=== PATIENT | male | born 1965 | race Caucasian/White ===

== ENCOUNTER 2021-06-27 09:41 | Inpatient (IN) ==
[2021-06-27 10:15] LABS: Basophils # (auto) 0.04 K/uL (0-0.2); Basophils % (auto) 0.5 %; Eosinophils # (auto) 0.28 K/uL (0-0.5); Eosinophils % (auto) 3.3 %; Hematocrit (blood only) 47.7 % (42-52); Hemoglobin 15.6 g/dL (14.0-18.0); Immature Granulocytes # (auto) 0.05 K/uL (0.00-0.02); Immature Granulocytes % (auto) 0.6 %; Lymphocytes # (auto) 2.77 K/uL (1.2-3.4); Lymphocytes % (auto) 32.3 %; Mean Corpuscular Hemoglobin 32.2 pg (25-34); Mean Corpuscular Hgb Conc 32.7 g/dL (32-36); Mean Corpuscular Volume 98.6 fL (80-100); Mean Platelet Volume 10.4 fL (7.4-10.4); Monocytes # (auto) 1.04 K/uL (0.11-0.59); Monocytes % (auto) 12.1 %; Neutrophils % (auto) 51.2 %; Platelet Count 193 K/uL (130-400); RDW Coefficient of Variation 13.7 % (11.5-14.5); RDW Standard Deviation 49.3 fL (36.4-46.3); Red Blood Count 4.84 M/uL (4.7-6.1); White Blood Count 8.58 K/uL (4.8-10.8)
--- NOTE | 2021-06-27 10:18 | Emergency Department Note ---
Impression & Plan Exertional angina, New onset a-fib, History of hypertension ED Provider Note NAME: CHAYITO ABRAMS AGE: 55 SEX: M ARRIVES VIA: Walk-In INFORMANT: Patient ED PROVIDER(S): Reuben Patel MD CHIEF COMPLAINT: New onset afib, exertional CP. PLAN: Disposition: Admit MEDICAL DECISION MAKING: The patient is a pleasant 55-year-old gentleman with a past medical history of portal vein thrombosis, hypertension who presents emergency department for evaluation and admission for exertional chest pain that has been ongoing since April seen by cardiology today for follow-up of a negative stress test found to be in new A. fib. The patient did arrive to his appointment today with chest pain with exertion and so there was concern for anginal pattern to his symptoms. They had recommended transport by ambulance however the patient deferred. He had been given aspirin and nitroglycerin with resolution of his pain. His EKG demonstrated A. fib without overt acute ischemia. Appreciate phone discussion with [facility] cardiology Dr. Pittman who saw the patient in the office and plan will be for admission with heparinization for A. fib and planned heart catheterization tomorrow. Patient denies any pain at this time. He denies any return of pain when walking from his vehicle. He has a has an extensive family history of early heart disease with family members in their 40s-50s. Patient denies any recent fevers, chills, cough, congestion, GI or symptoms. He denies any known COVID-19 exposures. He is not vaccinated for COVID-19. On arrival the patient is no distress, afebrile stable vital signs. EKG demonstrates atrial fibrillation without overt acute ischemia. Chest x-ray with interstitial prominence without focal infiltrates. WBC, H/H and platelets within normal limits. Chemistry without metabolic acidosis. Electrolytes LFTs without significant abnormality. Troponin negative/undetectable. COVID-19 RNA, ASHLEY test was negative. Patient denies any history of GI bleeding or bleeding otherwise. We agreed to proceed with shaji tment with heparin at this time. He agrees with plan for admission. Case was discussed with Sherri Keen [facility] PAC, with Dr. Rico [facility] hospitalist who will evaluate the patient for admission. Triage Nursing notes reviewed and agree them. Prior medical records reviewed Vital Signs: reviewed and remarkable for no significant abnormalities Differential diagnosis: Cardiac ischemia, aortic dissection, pulmonary embolism, pneumothorax, pneumonia, pericarditis, myocarditis, esophageal rupture, GERD, cholecystitis, pancreatitis, musculoskeletal, as well as other pathologies. ER treatment provided: See below. Diagnostics interpreted by me: ECG: Atrial fibrillation, 87 bpm, no ectopy, no overt ST elevation or depression, QTC 401, QRS 90 Cardiac Monitoring: An order for continuous cardiac monitoring was placed and demonstrated Atrial fibrillation, 87 bpm, no ectopy. Laboratory studies: See below Imaging studies: See below Consultation(s): Sherri Keen, [facility] PAC, with Dr. Rico, [facility] hospitalist who will evaluate the patient for admission. HPI: The patient is a pleasant 55-year-old gentleman with a past medical history of portal vein thrombosis, hypertension who presents emergency department for evaluation and admission for exertional chest pain that has been ongoing since April seen by cardiology today for follow-up of a negative stress test found to be in new A. fib. The patient did arrive to his appointment today with chest pain with exertion and so there was concern for anginal pattern to his symptoms. They had recommended transport by ambulance however the patient deferred. He had been given aspirin and nitroglycerin with resolution of his pain. His EKG demonstrated A. fib without overt acute ischemia. Appreciate phone discussion with [facility] cardiology Dr. Pittman who saw the patient in the office and plan will be for admission with heparinization for A. fib and planned heart catheterization tomorrow. Patient denies any pain at this time. He denies any return of pain when walking from his vehicle. He has a has an extensive family history of early heart disease with family members in their 40s-50s. Patient denies any recent fevers, chills, cough, congestion, GI or symptoms. He denies any known COVID-19 exposures. He is not vaccinated for COVID-19 ROS: See above HPI for pertinent positives & negatives. A total of 10 systems reviewed and were otherwise negative. PAST MEDICAL HISTORY:See Below PAST SURGICAL HISTORY:See Below FAMILY HISTORY:See Below SOCIAL HISTORY:See Below HOME MEDICATIONS:See Below ALLERGIES:See Below VITALS:See Below PHYSICAL EXAMINATION: GENERAL: Awake, alert, well-appearing, in no distress, BMI 40.6 HENT: Normocephalic, atraumatic. Oropharynx unremarkable. EYES: Normal conjunctiva. Sclera non-icteric. NECK: Supple. No nuchal rigidity. FROM. No JVD. RESPIRATORY: Clear to auscultation. CARDIAC: Regular rate, irregular rhythm. Extremities warm and well perfused. Pu lses equal. ABDOMEN: Soft, non-distended. No tenderness to palpation. No rebound or guarding. No masses. RECTAL: Deferred. MUSCULOSKELETAL: Chest examination reveals no tenderness. The back is symmetr ical on inspection without obvious abnormality. There is no CVA tenderness to palpation. No joint edema. LOWER EXTREMITIES: Calves are equal size bilaterally and non-tender. No edema. No discoloration. NEURO: Normal sensorium. No sensory or motor deficits noted. SKIN: No rash or jaundice noted. ED COURSE: Critical Care: I have personally spent greater than 35 minutes of critical care time in the direct management of this patient. This includes bedside care, interpretation of diagnostic studies, and testing, discussion with consultants, patient, and family members, and other required patient management activities. This 35 minutes is in excess of all separately billable procedures. Reuben Patel MD Past Med/Surg History Medical History HTN (hypertension) Portal vein thrombosis Family History Other Heart disease Social History Smoking Status: Current some day smoker Tobacco Type: Cigarettes Preferred Language: Lao Feels Safe at Home: Yes Allergies Allergies Allergy/AdvReac Type Severity Reaction Status Date / Time garlic Allergy Unknown UNKNOWN Unverified 06/27/21 11:45 latex Allergy Unknown rash Verified 06/27/21 11:45 Home Meds Home Medications Medication Instructions Recorded Confirmed aspirin 81 mg tablet,delayed 81 mg PO DAILY 06/27/21 06/27/21 release (Aspirin Low Dose) atenolol 50 mg tablet 50 mg PO DAILY 06/27/21 06/27/21 ergocalciferol (vitamin D2) 1,000 1,000 unit PO DAILY 06/27/21 06/27/21 unit capsule hydrochlorothiazide 25 mg tablet 25 mg PO DAILY 06/27/21 06/27/21 Results & Data (ED) Vital Signs Vital Signs - 24 hr 06/27/21:49 06/27/21 10:06 Temperature 36.4 C L Temperature Source Temporal Artery Scan Pulse Rate 94 H Pulse Rate [Apical] 64 Respiratory Rate 18 18 Respiratory Effort / Characteristics Non-Labored Respiratory Depth Normal Respiratory Pattern Regular Blood Pressure 126/92 Blood Pressure [Left Arm] 137/88 Blood Pressure Mean 103 Blood Pressure Mean [Left Arm] 104 Pulse Oximetry 96 98 Oxygen Delivery Method Room Air Room Air Sepsis Recent Fever Within 48 Hours No Sepsis New/Unexplained Change in Mental Status No Sepsis Action Taken by Nursing No Action Required Laboratory Data Attestation: I reviewed the patient's lab results. Result diagrams: 06/27/21 10:05 06/27/21 10:05 Lab Results 06/27/21 06/27/21 06/27/21 Range/Units 10:05 10:05 10:05 WBC 8.58 (4.8-10.8) K/uL RBC 4.84 (4.7-6.1) M/uL Hgb 15.6 (14.0-18.0) g/dL Hct 47.7 (42-52) % MCV 98.6 (80-100) fL MCH 32.2 (25-34) pg MCHC 32.7 (32-36) g/dL RDW Std Deviation 49.3 H (36.4-46.3) fL RDW Coeff of Connor 13.7 (11.5-14.5) % Plt Count 193 (130-400) K/uL MPV 10.4 (7.4-10.4) fL Immature Gran % (Auto) 0.6 % Neut % (Auto) 51.2 % Lymph % (Auto) 32.3 % [place] % (Auto) 12.1 % Eos % (Auto) 3.3 % Baso % (Auto) 0.5 % Neut # (Auto) 4.40 (1.4-6.5) K/uL Lymph # (Auto) 2.77 (1.2-3.4) K/uL [place] # (Auto) 1.04 H (0.11-0.59) K/uL Eos # (Auto) 0.28 (0-0.5) K/uL Baso # (Auto) 0.04 (0-0.2) K/uL Immature Gran # (Auto) 0.05 H (0.00-0.02) K/uL PT 11.2 (9.0-12.0) Seconds INR 1.1 (0.9-1.1) APTT 23.6 (21.0-31.0) Seconds PTT Ratio 0.9 Sodium 141 (136-145) mmol/L Potassium 4.5 (3.5-5.1) mmol/L Chloride 111 H (98-107) mmol/L Carbon Dioxide 26 (21-32) mmol/L Anion Gap 4 (3-11) BUN 17 (6-23) mg/dl Creatinine 0.92 (0.6-1.4) mg/dl Est Cr Clr Drug Dosing 127.2 ml/min Est GFR ( Amer) 108.9 ml/min Est GFR (Non-Af Amer) 94.0 ml/min BUN/Creatinine Ratio 18.5 (10-20) Glucose 116 H (70-99(Fasting)) mg/dl Calcium 9.6 (8.5-10.1) mg/dl Phosphorus 3.8 (2.5-4.9) mg/dl Magnesium 2.1 (1.7-2.4) mg/dl Total Bilirubin 0.4 (0.2-1.0) mg/dl AST 34 (13-39) U/L ALT 51 (7-52) U/L Alkaline Phosphatase 54 (34-104) U/L Troponin I < 0.03 (0-0.04) ng/ml Total Protein 6.9 (6.0-8.3) gm/dl Albumin 4.0 (3.4-5.0) gm/dl Globulin 2.9 (2.5-4.0) gm/dl Albumin/Globulin Ratio 1.4 (0.9-2) Lipase 59 (11-82) U/L SARS-CoV-2, RNA, NAAT (NEGATIVE) 06/27/21 Range/Units 10:38 WBC (4.8-10.8) K/uL RBC (4.7-6.1) M/uL Hgb (14.0-18.0) g/dL Hct (42-52) % MCV (80-100) fL MCH (25-34) pg MCHC (32-36) g/dL RDW Std Deviation (36.4-46.3) fL RDW Coeff of Connor (11.5-14.5) % Plt Count (130-400) K/uL MPV (7.4-10.4) fL Immature Gran % (Auto) % Neut % (Auto) % Lymph % (Auto) % [place] % (Auto) % Eos % (Auto) % Baso % (Auto) % Neut # (Auto) (1.4-6.5) K/uL Lymph # (Auto) (1.2-3.4) K/uL [place] # (Auto) (0.11-0.59) K/uL Eos # (Auto) (0-0.5) K/uL Baso # (Auto) (0-0.2) K/uL Immature Gran # (Auto) (0.00-0.02) K/uL PT (9.0-12.0) Seconds INR (0.9-1.1) APTT (21.0-31.0) Seconds PTT Ratio Sodium (136-145) mmol/L Potassium (3.5-5.1) mmol/L Chloride (98-107) mmol/L Carbon Dioxide (21-32) mmol/L Anion Gap (3-11) BUN (6-23) mg/dl Creatinine (0.6-1.4) mg/dl Est Cr Clr Drug Dosing ml/min Est GFR ( Amer) ml/min Est GFR (Non-Af Amer) ml/min BUN/Creatinine Ratio (10-20) Glucose (70-99(Fasting)) mg/dl Calcium (8.5-10.1) mg/dl Phosphorus (2.5-4.9) mg/dl Magnesium (1.7-2.4) mg/dl Total Bilirubin (0.2-1.0) mg/dl AST (13-39) U/L ALT (7-52) U/L Alkaline Phosphatase (34-104) U/L Troponin I (0-0.04) ng/ml Total Protein (6.0-8.3) gm/dl Albumin (3.4-5.0) gm/dl Globulin (2.5-4.0) gm/dl Albumin/Globulin Ratio (0.9-2) Lipase (11-82) U/L SARS-CoV-2, RNA, NAAT NEGATIVE (NEGATIVE) Administered Medications Atorvastatin Calcium (Atorvastatin 40 Mg Tab) 80 mg PO QAM [facility] Stop: 07/27/21 12:44 Last Admin: 06/27/21 14:24 Dose: 80 mg Documented by: [id number] Heparin Sodium/Dextrose (Heparin Sodium/Dextrose) 25,000 units in 500 mls @ 20 mls/hr IV .Q24H SHARON; Protocol Stop: 07/27/21 11:14 Last Admin: 06/27/21 11:25 Dose: 1,000 units/hr, 20 mls/hr Documented by: [id number] Cosigned by: [id number] Discontinued Medications Aspirin (Aspirin Chew 324 Mg) 324 mg PO NOW STA Stop: 06/27/21 12:40 Last Admin: 06/27/21 14:24 Dose: 324 mg Documented by: [id number] Heparin Sodium (Porcine) (Heparin Sod (Porcine) 1000 Unit/Ml) 1 units IV NOW ONE Stop: 06/27/21 11:04 Last Admin: 06/27/21 11:25 Dose: 4,000 units Documented by: [id number] Cosigned by: [id number] Heparin Sodium/Dextrose (Heparin Iv Adult Wt-Based Low-Dose With Bolus Protocol) 1 ea N/A NOW STA; Protocol Stop: 06/27/21 10:47 Last Admin: 06/27/21 11:25 Dose: Not Given Documented by: [id number] Imaging Data Radiologist's Impression: Venous Doppler Study 06/27/21 00:00 BILATERAL LOWER EXTREMITY VENOUS DOPPLER CLINICAL HISTORY: r/o DVT, left medial upper thigh pain COMPARISON STUDY: No previous studies for comparison. TECHNIQUE: Sonography of the deep venous system of the bilateral lower extremities was performed. Compression and augmentation were evaluated. FINDINGS: The bilateral common femoral, superficial femoral and popliteal veins were compressible. Augmentation was normal. Flow was shown within the deep calf vessels. IMPRESSION: No evidence of deep venous thrombus within the bilateral lower extremities. ACT 112: Negative or not required by law. Electronically signed by: Ishmael Hoyt M.D. 06/27/2021 2:26 PM Chest X-Ray 06/27/21 09:49 XR chest 1V portable CLINICAL HISTORY: Atypical chest pain. COMPARISON STUDY: No previous studies for comparison. FINDINGS: Lung volumes are normal. There is no pneumothorax or pleural effusion. Mild enlargement of the cardiac silhouette is noted. There is interstitial prominence. No consolidation is identified. IMPRESSION: Mild cardiomegaly. Pulmonary vascular congestion with possible mild pulmonary edema. ACT 112: Negative or not required by law. Electronically signed by: Ishmael Hoyt M.D. 06/27/2021 10:28 AM Discharge Plan Visit Data Chief Complaint: Abnormal Labs/Diagnostic Testing Stated Complaint: ABNORMAL EKG, CHEST PAIN ED Provider: Reuben Patel Discharge Problem: Exertional angina, New onset a-fib, History of hypertension Discharge Instructions Interventions: ED Discharge Assessment Last Done: 06/27/21 11:45
[2021-06-27 10:25] LABS: INR 1.1 (0.9-1.1); Partial Thromboplastin Ratio 0.9; Partial Thromboplastin Time 23.6 Seconds (21.0-31.0); Prothrombin Time 11.2 Seconds (9.0-12.0)
--- NOTE | 2021-06-27 10:30 | XRay Report ---
XR chest 1V portable CLINICAL HISTORY: Atypical chest pain. COMPARISON STUDY: No previous studies for comparison. FINDINGS: Lung volumes are normal. There is no pneumothorax or pleural effusion. Mild enlargement of the cardiac silhouette is noted. There is interstitial prominence. No consolidation is identified. IMPRESSION: Mild cardiomegaly. Pulmonary vascular congestion with possible mild pulmonary edema. ACT 112: Negative or not required by law. Electronically signed by: Ishmael Hoyt M.D. 06/27/2021 10:28 AM
[2021-06-27 10:39] LABS: Alanine Aminotransferase 51 U/L (7-52); Albumin Globulin Ratio 1.4 (0.9-2); Alkaline Phosphatase 54 U/L (34-104); Anion Gap 4 (3-11); Aspartate Aminotransferase 34 U/L (13-39); BUN Creatinine Ratio 18.5 (10-20); Bilirubin,Total 0.4 mg/dl (0.2-1.0); Blood Urea Nitrogen 17 mg/dl (6-23); Calcium 9.6 mg/dl (8.5-10.1); Carbon Dioxide 26 mmol/L (21-32); Chloride 111 mmol/L (98-107); Creatinine Clr Calc Pharmacy 127.2 ml/min; Est GFR (African American) 108.9 ml/min; Globulin 2.9 gm/dl (2.5-4.0); Glucose 116 mg/dl (70-99(Fasting)); Lipase 59 U/L (11-82); Magnesium 2.1 mg/dl (1.7-2.4); Phosphorus 3.8 mg/dl (2.5-4.9); Potassium 4.5 mmol/L (3.5-5.1); Sodium 141 mmol/L (136-145); Total Protein 6.9 gm/dl (6.0-8.3); Troponin I < 0.03 ng/ml (0-0.04)
[2021-06-27] MEDS ORDERED: Heparin IV Adult Wt-Based Low-Dose WITH Bolus Protocol STA (10:46)
--- NOTE | 2021-06-27 10:53 | History & Physical Report ---
Date of Service June 27, 2021 Assessment & Plan (1) Exertional angina: (2) New onset a-fib: (3) HTN (hypertension): Plan: - Admit to tele - New onset afib is rate controlled, will start on heparin gtt with low dose bolus - Cardiology consulted - saw Dr. Romero in the office earlier today - prior to that does not appear he has seen a provider within the [facility] since July 2019. - will discuss with card re make NPO at midnight for possible cardiac cath - EKG reviewed as above and from outpt today - no ischemia, no ST wave changes, afib, Hr in the 90s - Check 2 D echo - last was done November 2020 which showed LVEF of 55%, 4 chamber cardiac dilation, left ventricular hypertrophy with assymtetic septal thickening, slerotic changes involving both the aortic and mitral valve leaflets, trace mitral, aortic and tricuspid vavular insufficiency, dilation of the ascending aorta measured at 4.1 cm. - Initial troponin is negative - Pt reports completed a stress test Apr 2021 and that he passed - no further documentation available regarding this - Check TSH and free T4, last one was normal in November 2020 - Will check A1C and lipids with am labs - Noted fatty liver on previous labs that were brought from home. - Diet and exercise will need to be discussed throughout the visit, as well as smoking cessation (4) Tobacco use: Plan: - Smoking cessation, smokes 2-3 cig daily on and off for 6-8 months at a time. Pt reports being able to quit without nicotine replacement. Agreeable to cessation. (5) Left leg pain: Plan: - Will check doppler of legs bilaterally to rule out blood clot - pt describes pain 3-4 times since January going from the groin down the leg - Hx of portal vein thrombosis in 2016, reviewed in Epic outpt notes, will check liver US (6) Morbid obesity: Plan: - BMI of 40.6, diet and exercise encouraged. DVT ppx: - teds, scds, hepain gtt CODE: Full code Dispo: From home, likely to remain in the hospital x 1-2 days. History of Present Illness Chief Complaint: Exertional angina Primary Care Provider: Gabe Padilla This is a 55-year-old male with PMHx of HTN, ascending aortic enlargement who presented to the cardiology office this morning to see Dr. Kay for routine follow-up. Upon arriving there he did have chest pain, diaphoresis and some shortness of breath. His symptoms have been present since around , intermittently appearing, as often as daily. It occurs whenever he wakes up, while he is lying in bed, as well as when he is up doing physical activity. Pt describes a dull left sided chest pain which does not radiate, at it's worst is 4/10, and currently a 1/10 while at bedside. He also describes it as a "dripping from his heart". He denies syncope and near syncope. Admits to intermittent orthopnea without weight gain or noticeable edema. Pt notes he previously had a cyst in his chest cavity which was causing a similar pain, 20- 30 years ago, which he has had repeat imaging for and no other further needs for intervention. In the office he described a 2/10 chest discomfort and was treated with sublingual nitro 1 tablet, and given a full dose aspirin. He was referred to the ER however he denied EMS transfer so came per private vehicle. His EKG was found to be in A. fib with a rate of 99 bpm in the office. This appears to be new onset. Has previously followed with his PCP, Jayjay Tong in the outpatient setting. He did have an echocardiogram in November 2020 with normal results. He was referred this past April after a PCP visit to cardiology, and just got in to see the office earlier today for routine visit. Of note he mentions a left leg pain starting medially near the groin and goes down in the foot. Has occurred 3-4 times since January. He mentions a previous hernia (inguinal per records) which he saw a surgeon for 20 years ago, but did not undergo any intervention. Pt is worried about having a blood clot after discussion about afib and being started on heparin. In the ER the patient was started on heparin drip, and cardiology will be consulted for further assistance with work-up. 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 Surg Hx: Hx of colonoscopy with polyp removal, required laparoscopic partial bowel resection due to complication Allergies Allergy/AdvReac Type Severity Reaction Status Date / Time garlic Allergy Unknown UNKNOWN Unverified 06/27/21 11:45 latex Allergy Unknown rash Verified 06/27/21 11:45 Home Medications Medication Instructions Recorded Confirmed Type aspirin 81 mg tablet,delayed 81 mg PO DAILY 06/27/21 06/27/21 History release (Aspirin Low Dose) atenolol 50 mg tablet 50 mg PO DAILY 06/27/21 06/27/21 History ergocalciferol (vitamin D2) 1,000 1,000 unit PO DAILY 06/27/21 06/27/21 History unit capsule hydrochlorothiazide 25 mg tablet 25 mg PO DAILY 06/27/21 06/27/21 History Past Med/Surg History Medical History HTN (hypertension) Portal vein thrombosis Family History Other Heart disease Social History Smoking Status: Current some day smoker Tobacco Type: Cigarettes Preferred Language: Lebanese Feels Safe at Home: Yes Review of Systems Review of Systems: Constitutional: No fever, sweats or chills Eyes: No diplopia, no worsening or blurred vision ENT: normal hearing, no trouble swallowing Respiratory: No cough, sputum, dyspnea at rest or on exertion Cardiovascular: As per HPI. +chest pain, no tightness or palpitations Abdomen: No pain, nausea, vomiting, diarrhea or constipation Musculoskeletal: no joint pain, calf pain, swelling Neurologic: No weakness, numbness/tingling, or balance problems Psychiatric: No anxiety or depression Skin: No rash or itch Physical Exam Physical Exam: General: awake, alert, no apparent distress, + morbidly obese with BMI of 40.6 Head: Normocephalic, atraumatic ENT: PERRL, EOMI, no pharyngeal exudate, mucous membranes moist Chest: Clear to auscultation, on room air, no adventitious breath sounds Cardiac: + irregularly irregular, HR in mid to low 90s. No murmur, no JVD, normal peripheral pulses, good capillary refill, no chest pain with palpation. Abdominal: NABS x 4 quadrants, soft, nondistended, nontender to palpation, no rebound or guarding Extremities: Normal inspection, no peripheral edema or erythema, calfs nontender to palpation Psych: Normal mood and affect Neuro: AAO x 3, strength intact bilaterally and rated 5/5, no motor deficits, speech is clear, no peripheral sensory deficits Results & Data Results & Data ([facility]) Vital Signs (Past 12 Hours) Vital Signs Temp Pulse Pulse Resp BP BP Pulse Ox 06/27/21 10:06 64 18 137/88 98 06/27/21 09:49 36.4 C L 94 H 18 126/92 96 Laboratory Results 06/27/21 06/27/21 06/27/21 10:38 10:05 10:05 WBC RBC Hgb Hct MCV MCH MCHC RDW Std Deviation RDW Coeff of Connor Plt Count MPV Immature Gran % (Auto) Neut % (Auto) Lymph % (Auto) [place] % (Auto) Eos % (Auto) Baso % (Auto) Neut # (Auto) Lymph # (Auto) [place] # (Auto) Eos # (Auto) Baso # (Auto) Immature Gran # (Auto) PT 11.2 INR 1.1 APTT 23.6 PTT Ratio 0.9 Sodium 141 Potassium 4.5 Chloride 111 H Carbon Dioxide 26 Anion Gap 4 BUN 17 Creatinine 0.92 Est Cr Clr Drug Dosing 127.2 Est GFR ( Amer) 108.9 Est GFR (Non-Af Amer) 94.0 BUN/Creatinine Ratio 18.5 Glucose 116 H Calcium 9.6 Phosphorus 3.8 Magnesium 2.1 Total Bilirubin 0.4 AST 34 ALT 51 Alkaline Phosphatase 54 Troponin I < 0.03 Total Protein 6.9 Albumin 4.0 Globulin 2.9 Albumin/Globulin Ratio 1.4 Lipase 59 SARS-CoV-2, RNA, NAAT NEGATIVE 06/27/21 10:05 WBC 8.58 RBC 4.84 Hgb 15.6 Hct 47.7 MCV 98.6 MCH 32.2 MCHC 32.7 RDW Std Deviation 49.3 H RDW Coeff of Connor 13.7 Plt Count 193 MPV 10.4 Immature Gran % (Auto) 0.6 Neut % (Auto) 51.2 Lymph % (Auto) 32.3 [place] % (Auto) 12.1 Eos % (Auto) 3.3 Baso % (Auto) 0.5 Neut # (Auto) 4.40 Lymph # (Auto) 2.77 [place] # (Auto) 1.04 H Eos # (Auto) 0.28 Baso # (Auto) 0.04 Immature Gran # (Auto) 0.05 H PT INR APTT PTT Ratio Sodium Potassium Chloride Carbon Dioxide Anion Gap BUN Creatinine Est Cr Clr Drug Dosing Est GFR ( Amer) Est GFR (Non-Af Amer) BUN/Creatinine Ratio Glucose Calcium Phosphorus Magnesium Total Bilirubin AST ALT Alkaline Phosphatase Troponin I Total Protein Albumin Globulin Albumin/Globulin Ratio Lipase SARS-CoV-2, RNA, NAAT Diagnostic Findings Chest X-Ray 06/27/21 09:49 XR chest 1V portable CLINICAL HISTORY: Atypical chest pain. COMPARISON STUDY: No previous studies for comparison. FINDINGS: Lung volumes are normal. There is no pneumothorax or pleural effusion. Mild enlargement of the cardiac silhouette is noted. There is interstitial prominence. No consolidation is identified. IMPRESSION: Mild cardiomegaly. Pulmonary vascular congestion with possible mild pulmonary edema. ACT 112: Negative or not required by law. Electronically signed by: Ishmael Hoyt M.D. 06/27/2021 10:28 AM ECG Additional Comments: 27-JUN-2021 09:59:47 [facility]-EDSTAT ROUTINE RETRIEVAL Atrial fibrillation Abnormal ECG When compared with ECG of 08-DEC-2013 13:31, Atrial fibrillation has replaced Sinus rhythm Vent. rate has increased BY 29 BPM Nonspecific T wave abnormality no longer evident in Inferior leads Nonspecific T wave abnormality, worse in Lateral leads 25mm/s 10mm/mV 150Hz 9.0.9 12SL 241 BEAU: 16 Referred by: Jesus Kay Unconfirmed Vent. rate 87 BPM TX interval * ms QRS duration 90 ms QT/QTc 334/401 ms Code Status & VTE Plan Code Status Full code - discussed with the pt at bedside with his Supervising Physician Co-Signing Physician Notes I have seen and examined the patient and have discussed the case with the provider above. I agree with the assessment and plan as stated with exceptions as noted in supplemental communication note. DO Jacky
[2021-06-27] MEDS ORDERED: HEPARIN SOD (PORCINE) 1000 UNIT/ML IV ONE ×2 (11:03→20:05)
[2021-06-27] MEDS: HEPARIN SODIUM/DEXTROSE 25,000 UNITS/500 ML BAG IV SCH (11:25)
[2021-06-27] MEDS ORDERED: ACETAMINOPHEN 325 MG TAB PO PRN (11:45)
[2021-06-27] MEDS ORDERED: ONDANSETRON INJ 2 MG/ML 2 ML VIAL IV PRN (11:45)
--- NOTE | 2021-06-27 12:17 | Communication Note ---
Date of Service: June 27, 2021 55 yo M presented to the ER via POV as a referral from [facility] Cardiology office for chest pain and new onset atrial fibrillation with atrial fibrillat ion. He reports having intermittent chest pain that is increasing in frequency associated with decreased exercise tolerance when doing his job which has not previously been an issue for him. He had 2/10 chest pain in the office and received sublingual nitroglycerin with resolution of symptoms. He is currently pain-free and denies any heart palpitations or lightheadedness. Risk factors for CAD include obesity, active smoking, and a family history of early CAD (brother with MS at 46 yo). An echo from November 2020 reveals normal LV wall motion with an EF 55% with LVH and asymmetric septal thickening. There were sclerotic changes of the aortic and mitral valve leaflets with trace valvular insufficiency. Dilation of the ascending aorta was also present measuring 4.1cm. EKG tracing reveals atrial fibrillation and his heart rate is consistently less than 100. He denies any issues with bruising or bleeding recently, including no blood per rectum and no hematuria. Physical exam reveals an obese man in no acute distress. Mentating clearly with speech and memory intact, CN 2-12 grossly intact and no gross focal deficits. Cardiac exam reveals irregularly irregular rhythm with no murmurs, gallops or rubs. JVP is not elevated and there is no JVD or peripheral edema. Radial pulses are 2+ bilaterally and irregular. Extremities are warm and well perfused. Abdomen is protuberant, sof t, nondistended and nontender. Well-healed laparoscopic sites are present. He moves all extremities equally. Gait was not assessed. Lab work revealed negative troponin, normal CBC, BMP and PT/INR. EKG as above with no evidence of acute ischemia. Agree with adding TSH (normal TFTs in November 2020). He took ASA 81mg at home this morning, but did not take any further aspirin. With recent chest pain and risk factors for ACS will give additional 324mg chew now. Will also add lipitor 80mg in case of plaque rupture. Cont with ternormin, ASA 81mg daily, and HCTZ per home regimen. Cardiology consulted with plans to perform cardiac catheterization in am. Notably ROS also revealed right medial thigh pain which he reported has been going on for about 6 months, and is his "main concern." This pain is sharp, waking him up at night and lasts 15-20 minutes with spontaneous resolution. No precipitating or alleviating factors. Patient denies any recent risk factors for blood clot but reports a history of provoked post operative DVT (records review reveals evidence of PVT in 2016). Patient also has a h/o unknown hernia for which he was supposed to have surgery on previously which was deferred. Will start with US lower extremities and liver doppler to r/o DVT. If no DVT found, there is low risk for PE. Cathy Rico DO [facility]
[2021-06-27] MEDS ORDERED: ASPIRIN CHEW 324 MG PO STA (12:39)
[2021-06-27] MEDS: ATORVASTATIN 40 MG TAB PO SCH (14:24)
--- NOTE | 2021-06-27 14:27 | Ultrasound Report ---
BILATERAL LOWER EXTREMITY VENOUS DOPPLER CLINICAL HISTORY: r/o DVT, left medial upper thigh pain COMPARISON STUDY: No previous studies for comparison. TECHNIQUE: Sonography of the deep venous system of the bilateral lower extremities was performed. Co mpression and augmentation were evaluated. FINDINGS: The bilateral common femoral, superficial femoral and popliteal veins were compressible. A ugmentation was normal. Flow was shown within the deep calf vessels. IMPRESSION: No evidence of deep venous thrombus within the bilateral lower extremities. ACT 112: Negative or not required by law. Electronically signed by: Ishmael Hoyt M.D. 06/27/2021 2:26 PM
--- NOTE | 2021-06-27 14:30 | Ultrasound Report ---
US duplex portal hepatic veins CLINICAL HISTORY: Assess for portal vein thrombosis. COMPARISON STUDY: Abdomen and pelvis CT 03/14/2015. FINDINGS: The hepatic and portal veins are patent and demonstrate normal direction of flow. A 1.9 cm hypoechoic focus within the liver which may represent an area of focal fatty sparing. IMPRESSION: No evidence for portal vein thrombosis. ACT 112: Negative or not required by law. Electronically signed by: Antony Cadena M.D. 06/27/2021 2:29 PM
--- NOTE | 2021-06-27 14:50 | Cardiology Consultation ---
Date of Consultation June 27, 2021 Assessment & Plan (1) New onset a-fib: (2) HTN (hypertension): (3) Thoracic aneurysm without mention of rupture: The patient's heart rate is currently controlled and he is hemodynamically stable. He does not examine like he has heart failure, so I would not actively diurese him. He is anticoagulated with heparin. I will check his echocardiogram and make further recommendations. History of Present Illness Attending Physician: Cathy Rico, History of Present Illness This is a 55-year-old male patient who was followed by Dr. France until his recent halfway. He has an aneurysmal segment of his ascending aorta last measured at 4.6 cm. No prior history of coronary artery disease or heart failure. He is treated for mild hypertension and has a history of portal vein thrombosis. He does smoke but not on a daily basis. Since he is not felt well. He has had fatigue and tiredness and occasional what he describes as sharp chest pain. He came to the office today and was seen by Dr. Romero. Upon arrival there he was short of breath and having some chest discomfort. He was noted to be in newly diagnosed atrial fibrillation with RVR. He was referred to the emergency department where he has been admitted. Allergies Allergy/AdvReac Type Severity Reaction Status Date / Time garlic Allergy Unknown UNKNOWN Unverified 06/27/21 11:45 latex Allergy Unknown rash Verified 06/27/21 11:45 Home Medications Medication Instructions Recorded Confirmed Type aspirin 81 mg tablet,delayed 81 mg PO DAILY 06/27/21 06/27/21 History release (Aspirin Low Dose) atenolol 50 mg tablet 50 mg PO DAILY 06/27/21 06/27/21 History ergocalciferol (vitamin D2) 1,000 1,000 unit PO DAILY 06/27/21 06/27/21 History unit capsule hydrochlorothiazide 25 mg tablet 25 mg PO DAILY 06/27/21 06/27/21 History Patient History Medical History HTN (hypertension) Portal vein thrombosis Family History Other Heart disease Social History Smoking Status: Current some day smoker Tobacco Type: Cigarettes Hx Alcohol Use: Yes Alcohol type: beer and hard liquor Hx Substance Use: No Preferred Language: [place] Communication Ability: Effective Wardrobe Manager Required: No Beliefs That Will Affect Care: Judaism Judaism Beliefs: Restoration Current Living Situation: Spouse Other Information That Helps Us Care for You: No Feels Safe at Home: Yes Safety Concerns: Feels Safe At This Time Assistive Devices: None Review of Systems Review of Systems: Review of Systems: See HPI for pertinent positives. All other 10 point review of systems are negative. Physical Exam Physical Exam: General: no acute distress and stated age Head: normocephalic, no masses, lesions, tenderness or abnormalities Eyes: conjunctiva are pink and non-injected, sclera clear Neck: supple, no adenopathy, no bruits, normal jugular venous pulse, no hepatojugular reflux Chest: normal shape and normal respiratory effort Lungs: clear to auscultation and percussion Cardiac Exam: - regular rate & rhythm, no murmurs gallops or rubs - normal S1, normal S2 Pulses: 2(+) throughout Abdomen: abdomen soft, non-tender, no abnormal masses and no hepatosplenomegaly Musculoskeletal: no gait disturbance, no joint inflammation, no deforming arthritis Extremities: no edema and no cyanosis Neuro: grossly normal exam Results & Data ([facility]) Vital Signs (Past 12 Hours) Vital Signs Temp Pulse Pulse Resp BP BP Pulse Ox 06/27/21 13:34 90 18 138/93 95 06/27/21 10:06 64 18 137/88 98 06/27/21 09:49 36.4 C L 94 H 18 126/92 96 Laboratory Results General: no acute distress and stated age Head: normocephalic, no masses, lesions, tenderness or abnormalities Eyes: conjunctiva are pink and non-injected, sclera clear Neck: supple, no adenopathy, no bruits, normal jugular venous pulse, no hepatojugular reflux Chest: normal shape and normal respiratory effort Lungs: clear to auscultation and percussion Cardiac Exam: - regular rate & rhythm, no murmurs gallops or rubs - normal S1, normal S2 Pulses: 2(+) throughout Abdomen: abdomen soft, non-tender, no abnormal masses and no hepatosplenomegaly Musculoskeletal: no gait disturbance, no joint inflammation, no deforming arthritis Extremities: no edema and no cyanosis Neuro: grossly normal exam Medications Administered Current Inpatient Medications Acetaminophen (Acetaminophen 325 Mg Tab) 650 mg PO Q4H PRN PRN Reason: Moderate Pain Stop: 07/27/21 11:44 Aspirin (Aspirin 81 Mg Ectab) 81 mg PO DAILY [facility] Stop: 07/28/21 08:59 Atenolol (Atenolol 50 Mg Tablet) 50 mg PO DAILY [facility] Stop: 07/28/21 08:59 Atorvastatin Calcium (Atorvastatin 40 Mg Tab) 80 mg PO QAM [facility] Stop: 07/27/21 12:44 Last Admin: 06/27/21 14:24 Dose: 80 mg Documented by: Hydrochlorothiazide (Hydrochlorothiazide 25 Mg Tab) 25 mg PO DAILY [facility] Stop: 07/28/21 08:59 Heparin Sodium/Dextrose (Heparin Sodium/Dextrose) 25,000 units in 500 mls @ 20 mls/hr IV .Q24H [facility]; Protocol Stop: 07/27/21 11:14 Last Admin: 06/27/21 11:25 Dose: 1,000 units/hr, 20 mls/hr Documented by: Ondansetron HCl (Ondansetron Inj 2 Mg/Ml 2 Ml Vial) 4 mg IV Q4H PRN PRN Reason: Nausea And Vomiting Stop: 07/27/21 11:44 Vitamin D (Cholecalciferol 1,000 Units 25 Mcg Tab) 1,000 units PO DAILY [facility] Stop: 07/28/21 08:59
[2021-06-27 19:36] LABS: Partial Thromboplastin Time 25.6 Seconds (21.0-31.0)
[2021-06-28 03:02] LABS: Partial Thromboplastin Ratio 1.2; Partial Thromboplastin Time 32.7 Seconds (21.0-31.0)
[2021-06-28] MEDS ORDERED: HEPARIN SOD (PORCINE) 1000 UNIT/ML ONE (03:26)
[2021-06-28] MEDS: HEPARIN SOD (PORCINE) 1000 UNIT/ML IV ONE ×2 (03:29→04:44)
[2021-06-28 04:40] LABS: Hematocrit (blood only) 44.6 % (42-52); Hemoglobin 14.6 g/dL (14.0-18.0); Mean Corpuscular Hemoglobin 32.6 pg (25-34); Mean Corpuscular Hgb Conc 32.7 g/dL (32-36); Mean Corpuscular Volume 99.6 fL (80-100); Mean Platelet Volume 10.6 fL (7.4-10.4); Platelet Count 162 K/uL (130-400); RDW Coefficient of Variation 13.9 % (11.5-14.5); RDW Standard Deviation 50.7 fL (36.4-46.3); Red Blood Count 4.48 M/uL (4.7-6.1); White Blood Count 7.43 K/uL (4.8-10.8)
[2021-06-28 04:58] LABS: Alanine Aminotransferase 45 U/L (7-52); Albumin Globulin Ratio 1.3 (0.9-2); Albumin Level 3.5 gm/dl (3.4-5.0); Alkaline Phosphatase 44 U/L (34-104); Anion Gap 6 (3-11); Aspartate Aminotransferase 26 U/L (13-39); BUN Creatinine Ratio 22.6 (10-20); Bilirubin,Total 0.8 mg/dl (0.2-1.0); Blood Urea Nitrogen 19 mg/dl (6-23); Calcium 8.7 mg/dl (8.5-10.1); Carbon Dioxide 25 mmol/L (21-32); Chloride 109 mmol/L (98-107); Chol HDL Ratio 4.3 (0-5); Cholesterol 179 mg/dl (0-200); Creatinine Clr Calc Pharmacy 139.3 ml/min; Est GFR (Non-African American) 99.3 ml/min; Globulin 2.6 gm/dl (2.5-4.0); Glucose 90 mg/dl (70-99(Fasting)); HDL Cholesterol 42 mg/dl; LDL Cholesterol Calculated 110 mg/dl; Potassium 3.7 mmol/L (3.5-5.1); Sodium 140 mmol/L (136-145); Total Protein 6.1 gm/dl (6.0-8.3); Triglycerides 136 mg/dl (0-150); VLDL Cholesterol 27 mg/dl (0-30)
[2021-06-28 05:16] LABS: Troponin I < 0.03 ng/ml (0-0.04)
--- NOTE | 2021-06-28 06:27 | Electrocardiogram Report ---
Test Reason : Blood Pressure : / mmHG Vent. Rate : 087 BPM Atrial Rate : 277 BPM P-R Int : 000 ms QRS Dur : 090 ms QT Int : 334 ms P-R-T Axes : 000 -24 084 degrees QTc Int : 401 ms Atrial fibrillation Nonspecific T wave abnormality Abnormal ECG When compared with ECG of 08-DEC-2013 13:31, Atrial fibrillation has replaced Sinus rhythm Vent. rate has increased BY 29 BPM Nonspecific T wave abnormality no longer evident in Inferior leads Nonspecific T wave abnormality, worse in Lateral leads Confirmed by Lai Foster ([id number]) on 06/28/2021 6:27:48 AM Referred By: Jesus Kay Confirmed By:Lai Foster
[2021-06-28] MEDS: ASPIRIN 81 MG ECTAB PO SCH (08:14)
[2021-06-28] MEDS: HEPARIN SODIUM/DEXTROSE 25,000 UNITS/500 ML BAG IV SCH ×3 (08:14→22:02)
[2021-06-28] MEDS: ATENOLOL 50 MG TABLET PO SCH (08:15)
[2021-06-28] MEDS: hydroCHLOROthiazide 25 MG TAB PO SCH (08:15)
[2021-06-28] MEDS: ATORVASTATIN 40 MG TAB PO SCH (08:16)
[2021-06-28] MEDS: CHOLECALCIFEROL 1,000 UNITS 25 MCG TAB PO SCH (08:16)
[2021-06-28 09:48] LABS: Partial Thromboplastin Ratio 1.5; Partial Thromboplastin Time 40.3 Seconds (21.0-31.0)
[2021-06-28 13:15] LABS: Estimated Average Glucose 128 mg/dl; Hemoglobin A1C 6.1 % (4.5-5.6)
--- NOTE | 2021-06-28 14:49 | Cardiology Progress Note ---
Date of Service June 28, 2021 Assessment & Plan (1) New onset a-fib: (2) HTN (hypertension): (3) Thoracic aneurysm without mention of rupture: Plan: Had a long discussion with the patient and his 's presence. His echocardiogram shows well-preserved LV function and no wall motion abnormalities that would suggest underlying ischemic heart disease. Cardiac troponins are negative. BNP is low. Believe the patient's symptoms are due to new onset atrial fibrillation. His heart rates are controlled due to the atenolol and I believe that is why he has been able to tolerate the atrial fibrillation most likely since . He is currently anticoagulated with heparin. I presented the option of early cardioversion with transesophageal echocardiogram versus returning home on anticoagulation for several weeks then having an elective cardioversion. He would like to proceed with the PILY guided cardioversion and we will plan on doing this procedure tomorrow. I have explained the risk, benefit and intent of the procedure, both the PILY and cardi oversion. Placed him on Eliquis and continue the atenolol then follow him as an outpatient. If unsuccessful then we may have to consider antiarrhythmic medication. Admission and Anticipated Discharge Date Admission Date: June 27, 2021 Subjective The patient has no new complaints today. No chest pain. No shortness of breath. He remains in a persistent atrial fibrillation with a controlled heart rate. Review of Systems Review of Systems: Review of Systems: See HPI for pertinent positives. All other 10 point review of systems are negative. Physical Exam Physical Exam: General: no acute distress and stated age Head: normocephalic, no masses, lesions, tenderness or abnormalities Eyes: conjunctiva are pink and non-injected, sclera clear Neck: supple, no adenopathy, no bruits, normal jugular venous pulse, no hepatojugular reflux Chest: normal shape and normal respiratory effort Lungs: clear to auscultation and percussion Cardiac Exam: - irregular rate & rhythm, no murmurs gallops or rubs - normal S1, normal S2 Pulses: 2(+) throughout Abdomen: abdomen soft, non-tender, no abnormal masses and no hepatosplenomegaly Musculoskeletal: no gait disturbance, no joint inflammation, no deforming arthritis Extremities: no edema and no cyanosis Neuro: grossly normal exam Results & Data ([facility]) Vital Signs (Past 12 Hours) Vital Signs Temp Pulse Resp BP Pulse Ox 06/28/21 14:04 36.7 C 66 20 132/93 95 06/28/21 12:55 36.5 C 83 22 133/100 93 06/28/21 07:58 36.8 C 88 15 146/110 H 95 06/28/21 03:17 75 16 173/103 H 96 Laboratory Results Laboratory Results - last 24 hr 06/27/21 06/27/21 06/28/21 19:18 23:27 02:25 WBC RBC Hgb Hct MCV MCH MCHC RDW Std Deviation RDW Coeff of Connor Plt Count MPV APTT 25.6 32.7 H PTT Ratio 1.0 1.2 Sodium Potassium Chloride Carbon Dioxide Anion Gap BUN Creatinine Est Cr Clr Drug Dosing Est GFR ( Amer) Est GFR (Non-Af Amer) BUN/Creatinine Ratio Glucose Estimat Average Glucose Hemoglobin A1c Calcium Magnesium Total Bilirubin AST ALT Alkaline Phosphatase Troponin I < 0.03 Total Protein Albumin Globulin Albumin/Globulin Ratio Triglycerides Cholesterol LDL Cholesterol, Calc VLDL Cholesterol, Calc HDL Cholesterol Cholesterol/HDL Ratio 06/28/21 06/28/21 06/28/21 04:09 04:09 04:09 WBC 7.43 RBC 4.48 L Hgb 14.6 Hct 44.6 MCV 99.6 MCH 32.6 MCHC 32.7 RDW Std Deviation 50.7 H RDW Coeff of Connor 13.9 Plt Count 162 MPV 10.6 H APTT PTT Ratio Sodium 140 Potassium 3.7 Chloride 109 H Carbon Dioxide 25 Anion Gap 6 BUN 19 Creatinine 0.84 Est Cr Clr Drug Dosing 139.3 Est GFR ( Amer) 115.0 Est GFR (Non-Af Amer) 99.3 BUN/Creatinine Ratio 22.6 H Glucose 90 Estimat Average Glucose 128 Hemoglobin A1c 6.1 H Calcium 8.7 Magnesium 2.0 Total Bilirubin 0.8 AST 26 ALT 45 Alkaline Phosphatase 44 Troponin I < 0.03 Total Protein 6.1 Albumin 3.5 Globulin 2.6 Albumin/Globulin Ratio 1.3 Triglycerides 136 Cholesterol 179 LDL Cholesterol, Calc 110 VLDL Cholesterol, Calc 27 HDL Cholesterol 42 Cholesterol/HDL Ratio 4.3 06/28/21 09:20 WBC RBC Hgb Hct MCV MCH MCHC RDW Std Deviation RDW Coeff of Connor Plt Count MPV APTT 40.3 H PTT Ratio 1.5 Sodium Potassium Chloride Carbon Dioxide Anion Gap BUN Creatinine Est Cr Clr Drug Dosing Est GFR ( Amer) Est GFR (Non-Af Amer) BUN/Creatinine Ratio Glucose Estimat Average Glucose Hemoglobin A1c Calcium Magnesium Total Bilirubin AST ALT Alkaline Phosphatase Troponin I Total Protein Albumin Globulin Albumin/Globulin Ratio Triglycerides Cholesterol LDL Cholesterol, Calc VLDL Cholesterol, Calc HDL Cholesterol Cholesterol/HDL Ratio Medications Administered Current Inpatient Medications Acetaminophen (Acetaminophen 325 Mg Tab) 650 mg PO Q4H PRN PRN Reason: Moderate Pain Stop: 07/27/21 11:44 Aspirin (Aspirin 81 Mg Ectab) 81 mg PO DAILY [facility] Stop: 07/28/21 08:59 Last Admin: 06/28/21 08:14 Dose: 81 mg Documented by: Atenolol (Atenolol 50 Mg Tablet) 50 mg PO DAILY [facility] Stop: 07/28/21 08:59 Last Admin: 06/28/21 08:15 Dose: 50 mg Documented by: Atorvastatin Calcium (Atorvastatin 40 Mg Tab) 80 mg PO QAM [facility] Stop: 07/27/21 12:44 Last Admin: 06/28/21 08:16 Dose: 80 mg Documented by: Hydrochlorothiazide (Hydrochlorothiazide 25 Mg Tab) 25 mg PO DAILY [facility] Stop: 07/28/21 08:59 Last Admin: 06/28/21 08:15 Dose: 25 mg Documented by: Heparin Sodium/Dextrose (Heparin Sodium/Dextrose) 25,000 units in 500 mls @ 32 mls/hr IV .[id number] [facility]; Protocol Stop: 07/27/21 11:14 Last Titration: 06/28/21 09:50 Dose: 1,600 units/hr, 32 mls/hr Documented by: Sodium Chloride (Nss 1000ml) 1,000 mls @ 80 mls/hr IV .[id number] [facility] Stop: 07/28/21 23:44 Ondansetron HCl (Ondansetron Inj 2 Mg/Ml 2 Ml Vial) 4 mg IV Q4H PRN PRN Reason: Nausea And Vomiting Stop: 07/27/21 11:44 Vitamin D (Cholecalciferol 1,000 Units 25 Mcg Tab) 1,000 units PO DAILY [facility] Stop: 07/28/21 08:59 Last Admin: 06/28/21 08:16 Dose: 1,000 units Documented by:
--- NOTE | 2021-06-28 17:10 | Hospitalist Progress Note ---
Date of Service June 28, 2021 Assessment & Plan (1) Exertional angina: (2) New onset a-fib: Plan: New onset afib Rate controlled Normal TSH ECHO: No significant valvular pathology. Left ventricle is normal in size. Left ventricle systolic function is normal. EF 60 to 65%. Right ventricle systolic function is normal. Left atrium is moderately dilated. Mild aortic root dilatation. Continue atenolol On IV heparin for anticoagulation Appreciate cardiology input Plan for PILY cardioversion tomorrow (3) HTN (hypertension): Plan: On atenolol, HCTZ Dyslipidemia On statin (4) Tobacco use: Plan: - Smoking cessation encouraged (5) Left leg pain: Plan: - Hx of portal vein thrombosis in 2016 Venous Doppler:No evidence of deep venous thrombus within the bilateral lower extremities. Portal Vein USD:No evidence for portal vein thrombosis. (6) Morbid obesity: Plan: BMI of 40.6 Diet and exercise encouraged DVT Px: heparin gtt CODE STATUS: Full code Admission and Anticipated Discharge Date Admission Date: June 27, 2021 Subjective Patient is seen and examined at bedside Currently on IV heparin Family at bedside Denies any chest pain, shortness of breath, dizziness, nausea, abdominal pain Plan for PILY Cardioversion tomorrow Review of Systems Review of Systems: All systems reviewed & are unremarkable except as noted in Subjective Physical Exam Physical Exam: Physical Exam: Vitals signs as noted above General Appearance:Morbidly Obese, no apparent distress Head: normocephalic, Atraumatic Eyes: normal inspection, EOMI Neck: supple, Trachea midline Respiratory/Chest: Decreased breath sounds, CTA, No accessory muscle use Cardiovascular: Irregularly irregular, No murmur Abdomen/GI:Soft, Non tender, Bowel sounds present Extremities/Musculoskeletal:normal inspection, no edema Neurologic/Psych:AAOX3, grossly no focal neurological deficits Skin: normal color, warm Results & Data Results & Data ([facility]) Vital Signs (Past 12 Hours) Vital Signs Temp Pulse Resp BP Pulse Ox 06/28/21 17:00 36.8 C 71 20 142/78 H 97 06/28/21 14:04 36.7 C 66 20 132/93 95 06/28/21 12:55 36.5 C 83 22 133/100 93 06/28/21 07:58 36.8 C 88 15 146/110 H 95 Laboratory Results Short CBC 06/28/21 Range/Units 04:09 WBC 7.43 (4.8-10.8) K/uL Hgb 14.6 (14.0-18.0) g/dL Hct 44.6 (42-52) % Plt Count 162 (130-400) K/uL BMP 06/28/21 04:09 Sodium 140 Potassium 3.7 Chloride 109 H Carbon Dioxide 25 BUN 19 Creatinine 0.84 Glucose 90 Calcium 8.7 Cardiac Enzymes 06/27/21 06/28/21 Range/Units 23:27 04:09 Troponin I < 0.03 < 0.03 (0-0.04) ng/ml Liver Function 06/28/21 Range/Units 04:09 Total Bilirubin 0.8 (0.2-1.0) mg/dl AST 26 (13-39) U/L ALT 45 (7-52) U/L Alkaline Phosphatase 44 (34-104) U/L Albumin 3.5 (3.4-5.0) gm/dl
[2021-06-28 17:14] LABS: Partial Thromboplastin Ratio 1.3; Partial Thromboplastin Time 34.2 Seconds (21.0-31.0)
[2021-06-28] MEDS ORDERED: HEPARIN SOD (PORCINE) 1000 UNIT/ML IV ONE ×2 (17:55→19:45)
[2021-06-28] MEDS ORDERED: SODIUM CHLORIDE 0.9% 1000ML 1,000 ML IV SCH (23:45)
[2021-06-29 02:18] LABS: Hematocrit (blood only) 44.9 % (42-52); Hemoglobin 14.6 g/dL (14.0-18.0); Mean Corpuscular Hemoglobin 31.7 pg (25-34); Mean Corpuscular Hgb Conc 32.5 g/dL (32-36); Mean Corpuscular Volume 97.6 fL (80-100); Mean Platelet Volume 10.5 fL (7.4-10.4); Platelet Count 156 K/uL (130-400); RDW Coefficient of Variation 13.5 % (11.5-14.5); RDW Standard Deviation 48.1 fL (36.4-46.3); White Blood Count 6.98 K/uL (4.8-10.8)
[2021-06-29 02:39] LABS: Albumin Globulin Ratio 1.4 (0.9-2); Albumin Level 3.6 gm/dl (3.4-5.0); Bilirubin,Total 0.7 mg/dl (0.2-1.0); Calcium 8.8 mg/dl (8.5-10.1); Est GFR (African American) 120.5 ml/min; Globulin 2.6 gm/dl (2.5-4.0); Potassium 3.7 mmol/L (3.5-5.1); Total Protein 6.2 gm/dl (6.0-8.3)
[2021-06-29 02:45] LABS: Partial Thromboplastin Ratio 1.8
[2021-06-29 02:47] LABS: Partial Thromboplastin Time 47.1 Seconds (21.0-31.0)
[2021-06-29] MEDS ORDERED: POTASSIUM CHLORIDE CRTAB 20 MEQ TABCR PO STA (06:07)
--- NOTE | 2021-06-29 07:01 | Anesthesiology Consultation ---
Date of Service June 29, 2021 Assessment & Plan (1) Encounter for pre-operative examination: Chart Review Chart Review: entry level recruiter initiated History Surgery Operation Date: 06/29/21 07:30 Proposed Procedures p Transesophageal Echo w/Anesthesia - Teddy Brooks DO s Cardioversion Insurance Claims Processor w/Anesthesia - Teddy Brooks DO Height/Weight Height: 5 ft 11 in Weight: 129.8 kg Allergies Allergy/AdvReac Type Severity Reaction Status Date / Time garlic Allergy Unknown UNKNOWN Unverified 06/27/21 11:45 latex Allergy Unknown rash Verified 06/27/21 11:45 Medications Home Medications Medication Instructions Recorded Confirmed Last Taken aspirin 81 mg tablet,delayed 81 mg PO DAILY 06/27/21 06/27/21 06/27/21 release (Aspirin Low Dose) atenolol 50 mg tablet 50 mg PO DAILY 06/27/21 06/27/21 06/27/21 ergocalciferol (vitamin D2) 1,000 1,000 unit PO DAILY 06/27/21 06/27/21 06/27/21 unit capsule hydrochlorothiazide 25 mg tablet 25 mg PO DAILY 06/27/21 06/27/21 06/27/21 Active Medications Generic Name Dose Route Start Last Admin Trade Name Freq PRN Reason Stop Dose Admin Aspirin 81 mg 06/28/21 09:00 06/28/21 08:14 Aspirin 81 Mg Ectab PO 07/28/21 08:59 81 mg DAILY [facility] Administration Atenolol 50 mg 06/28/21 09:00 06/28/21 08:15 Atenolol 50 Mg Tablet PO 07/28/21 08:59 50 mg DAILY [facility] Administration Atorvastatin Calcium 80 mg 06/27/21 12:45 06/28/21 08:16 Atorvastatin 40 Mg Tab PO 07/27/21 12:44 80 mg QAM [facility] Administration Hydrochlorothiazide 25 mg 06/28/21 09:00 06/28/21 08:15 Hydrochlorothiazide 25 Mg Tab PO 07/28/21 08:59 25 mg DAILY [facility] Administration Heparin Sodium/Dextrose 25,000 units in 500 mls @ 36 mls/hr 06/27/21 11:15 22:02 Heparin Sodium/Dextrose IV 07/27/21 11:14 1,800 units/hr .[id number] [facility] 36 mls/hr Administration Protocol 1,800 UNITS/HR Sodium Chloride 1,000 mls @ 80 mls/hr 06/28/21 23:45 06/29/21 00:00 Nss 1000ml IV 07/28/21 23:44 80 mls/hr .[id number] [facility] Administration Vitamin D 1,000 units 06/28/21 09:00 06/28/21 08:16 Cholecalciferol 1,000 Units 25 Mcg Tab PO 07/28/21 08:59 1,000 units DAILY [facility] Administration Past Medical History Medical History HTN (hypertension) Portal vein thrombosis Past Family History Family History Other Heart disease Social History Smoking Status: Current some day smoker tobacco type: cigarettes Hx Alcohol Use: Yes Alcohol type: beer and hard liquor alcohol intake frequency: a few times a week Hx Substance Use: No substance use type: does not use Physical Exam Vital Signs Last Vital Signs Temp 97.7 F 06/29/21 04:26 Pulse 68 06/29/21 04:26 Resp 18 06/29/21 04:26 BP 131/93 06/29/21 04:26 Pulse Ox 97 06/29/21 04:26 Testing Laboratory Results 06/29/21 02:04 06/29/21 02:04 PT 11.2 Seconds (9.0-12.0) 06/27/21 10:05 INR 1.1 (0.9-1.1) 06/27/21 10:05 APTT 47.1 Seconds (21.0-31.0) H* 06/29/21 02:04 Hemoglobin A1c 6.1 % (4.5-5.6) H 06/28/21 04:09 Laboratory Tests 06/27/21 10:38 SARS-CoV-2, RNA, NAAT NEGATIVE Electrocardiogram Date: 06/27/21 Atrial fibrillation, rate 87 bpm Nonspecific T wave abnormality Abnormal ECG When compared with ECG of 08-DEC-2013 13:31, Atrial fibrillation has replaced Sinus rhythm Vent. rate has increased BY 29 BPM Nonspecific T wave abnormality no longer evident in Inferior leads Nonspecific T wave abnormality, worse in Lateral leads Confirmed by Lai Foster ([id number]) on 06/28/2021 6:27:48 AM Chest X-Ray Date: 06/27/21 Mild cardiomegaly. Pulmonary vascular congestion with possible mild pulmonary edema. Echocardiogram Date: 06/27/21 No significant valvular pathology The LV is normal in size LV systolic function is normal EF 60-65% RV systolic function is normal LA is moderately dilated RA size is normal Mild aortic root dilatation
[2021-06-29] MEDS ORDERED: PROPOFOL IV EMULSION 10 MG/ML 20 ML VIAL IV ONE ×2 (07:04→08:04)
[2021-06-29] MEDS ORDERED: LIDOCAINE 2% MPF LOCAL 5 ML VIAL INFIL ONE (07:04)
[2021-06-29] MEDS ORDERED: BENZOCAINE/TETRACAIN/BUTAM 50 APPLN/5 GM CAN EXT ONE (07:29)
--- NOTE | 2021-06-29 07:34 | History & Physical Bridge Note ---
Date of Service June 29, 2021 History & Physical Bridge Note I have examined the patient, reviewed the History & Physical and in the interval since the performance of the History & Physical I have noted the following changes of clinical significance: no changes noted. Pt referred for PILY guided cardioversion by Dr Brooks. Informed consent obtained. Pt elects to proceed.
[2021-06-29] MEDS ORDERED: fentaNYL citrate 100 MCG/2 ML VIAL ONE (07:50)
--- NOTE | 2021-06-29 08:22 | Anesthesiology Progress Note ---
Date of Service June 29, 2021 Anesthesia Post Procedure Vital Signs Vital Signs: Temp Pulse Pulse Resp BP Pulse Ox 06/29/21 08:15 77 18 136/87 95 06/29/21 08:00 70 18 100/80 93 06/29/21 07:08 72 141/105 H 96 06/29/21 04:26 97.7 F 68 18 131/93 97 06/29/21 00:50 81 06/28/21 23:29 98.6 F 83 18 138/81 96 06/28/21 19:35 98.2 F 89 18 114/86 96 06/28/21 17:00 98.2 F 71 20 142/78 H 97 06/28/21 14:04 98.1 F 66 20 132/93 95 06/28/21 12:55 97.7 F 83 22 133/100 93 Transfer of Care Handoff Completed per policy Notes Mental Status: alert / awake / arousable and participated in evaluation Patient Amnestic to Procedure: Yes Nausea / Vomiting: adequately controlled Pain: adequately controlled Airway Patency, RR, SpO2: stable & adequate BP & HR: stable & adequate Hydration State: stable & adequate Anesthetic Complications: no major complications apparent and Pt Satisfied with anesthetic care
--- NOTE | 2021-06-29 08:23 | Cardioversion ---
Date of Service June 29, 2021 Electrical Cardioversion Rpt Electrical Cardioversion Report Date of Surgery June 29, 2021 Pre & Post Diagnosis Preprocedure diagnosis: Symptomatic atrial fibrillation Postprocedure diagnosis: No left atrial or left atrial appendage thrombus, successful conversion sinus rhythm Operation Date: 06/29/21 07:30 <No data on this case meets the specified criteria> Procedure Transesophageal echocardiogram guided direct-current cardioversion: The patient's vital signs and cardiac rhythm were monitored via the standard fashion. After informed consent was obtained and a timeout was performed the patient was sedated with the assistance of the anesthesia service receiving a total of 260 mg of IV propofol and 25 mcg of IV fentanyl. The transesophageal echocardiogram probe was placed without resistance. A focused study was performed for risk stratification prior to cardioversion. Moderate left atrial dilatation was present. Trace to mild mitral regurgitation was present. There is no left atrial or left atrial appendage thrombus. The patient then underwent synchronized direct-current cardioversion receiving a single dose of 200 J of biphasic energy with successful conversion to sinus rhythm. Post procedure EKG revealed sinus rhythm, with age-indeterminate inferior infarction pattern noted in leads III and aVF. Plan: Transferred back to PCU. Transition from heparin to Eliquis today without interruption. Continue prior to hospital dose of atenolol. If patient progresses well, will likely plan for discharge after lunch today, with plans for post hospital follow-up, and outpatient combined low intensity exercise/Lexiscan stress testing in the near future. Meter Reading Clerk Gabe Flores DO Gasoline Dragline Operator Chantal Ponce, [facility] assisted wt PILY Estimated Blood Loss 0 Findings as noted above Anesthesia Type MAC Complications None
--- NOTE | 2021-06-29 08:33 | Cardiology Progress Note ---
Date of Service June 29, 2021 Assessment & Plan (1) New onset a-fib: Plan: No LA, JOSÉ thrombus on PILY. Pt underwent successful PILY guided CV to sinus rhythm. Continue atenolol 50 mg daily. At 9 am will stop heparin infusion and administer Eliquis 5 mg, with plans for Eliquis 5 mg two times per day. Pt counseled with regards to the importance of adhering to Eliquis as directed to prevent stroke. Will ask hospitalist service about providing a rebate card for Eliquis. (2) HTN (hypertension): Plan: Continue atenolol, HCTZ. (3) Thoracic aneurysm without mention of rupture: Plan: -mild aortic root dilatation , 4.3 cm on TTecho. Continue repeat study at 6 month interval, CT or echo as outpatient. (4) Abnormal EKG: Plan: Age undetermined inferior infarct pattern on EKG post cardioversion. No acute repolarization changes to suggest active ischemia. Resting wall motion normal. Will plan for low intensity exercise / lexiscan stress as outpt. Cardio follow up in 2-3 weeks. Admission and Anticipated Discharge Date Admission Date: June 27, 2021 Subjective Patient seen in cardiology follow up prior to, during and after PILY guide cardioversion. In rate controlled AF over the night. Review of Systems Review of Systems: All systems reviewed & are unremarkable except as noted in HPI & below Physical Exam Constitutional: WD/WN, vitals as above Respiratory: normal respiratory effort, lungs clear to auscultation Cardiovascular: regular rhythm, post cardioversion Gastrointestinal (Abdomen): normal bowel sounds, soft, nontender, no hepatosplenomegaly Neurologic: PERRL, EOMI, accommodation nl, no face palsy, no dysarthria Results & Data ([facility]) Vital Signs (Past 12 Hours) Vital Signs Temp Pulse Pulse Resp BP Pulse Ox 06/29/21 08:15 77 18 136/87 95 06/29/21 08:00 70 18 100/80 93 06/29/21 07:08 72 141/105 H 96 06/29/21 04:26 36.5 C 68 18 131/93 97 06/29/21 00:50 81 06/28/21 23:29 37.0 C 83 18 138/81 96 Laboratory Results Cardiac Enzymes 06/29/21 Range/Units 02:04 AST 24 (13-39) U/L Coagulation 06/28/21 06/28/21 06/29/21 Range/Units 09:20 16:45 02:04 APTT 40.3 H 34.2 H 47.1 H* (21.0-31.0) Seconds CBC 06/29/21 Range/Units 02:04 WBC 6.98 (4.8-10.8) K/uL RBC 4.60 L (4.7-6.1) M/uL Hgb 14.6 (14.0-18.0) g/dL Hct 44.9 (42-52) % Plt Count 156 (130-400) K/uL Comprehensive Metabolic Panel 06/29/21 Range/Units 02:04 Sodium 138 (136-145) mmol/L Potassium 3.7 (3.5-5.1) mmol/L Chloride 107 (98-107) mmol/L Carbon Dioxide 26 (21-32) mmol/L BUN 15 (6-23) mg/dl Creatinine 0.75 (0.6-1.4) mg/dl Glucose 96 (70-99(Fasting)) mg/dl Calcium 8.8 (8.5-10.1) mg/dl AST 24 (13-39) U/L ALT 44 (7-52) U/L Alkaline Phosphatase 51 (34-104) U/L Total Protein 6.2 (6.0-8.3) gm/dl Albumin 3.6 (3.4-5.0) gm/dl Intake and Output 06/28/21 06/29/21 06/29/21 22:59 06:59 14:59 Intake Total 402.933 / 589.500 Balance 402.933 / 589.500 Intake: IV 402.933 / 589.500 Heparin Sodium/Dextrose 25,000 402.933 / 589.500 units In 500 ml @ 1,800 UNITS/ HR 36 mls/hr IV .[id number] [facility] Rx #:[id number] Other: Other Intake Source npo Weight 131.9 kg 129.8 kg 129.8 kg Weight Measurement Method Built in [facility] Patient Weight 06/30/21 06:59 Weight 129.8 kg
[2021-06-29] MEDS ORDERED: POTASSIUM CHLORIDE 20 MEQ/15 ML UDC PO ONE (08:45)
[2021-06-29] MEDS ORDERED: APIXABAN 5 MG TABLET PO SCH (09:00)
[2021-06-29] MEDS ORDERED: [UNRECOGNIZED DRUG - REMARK] ONE (09:00)
--- NOTE | 2021-06-29 09:02 | Cardiology Progress Note ---
Date of Service June 29, 2021 Assessment & Plan (1) New onset a-fib: (2) HTN (hypertension): (3) Thoracic aneurysm without mention of rupture: Plan: EF patient was successfully cardioverted this morning and is maintaining sinus rhythm. He will be transitioned to Eliquis and heparin can be discontinued. I would continue his other medications including atenolol. I will arrange at our [place] clinic. Admission and Anticipated Discharge Date Admission Date: June 27, 2021 Subjective The patient had a successful cardioversion today. Doing well post procedure. Review of Systems Review of Systems: Review of Systems: See HPI for pertinent positives. All other 10 point review of systems are negative. Physical Exam Physical Exam: General: no acute distress and stated age Head: normocephalic, no masses, lesions, tenderness or abnormalities Eyes: conjunctiva are pink and non-injected, sclera clear Neck: supple, no adenopathy, no bruits, normal jugular venous pulse, no hepatojugular reflux Chest: normal shape and normal respiratory effort Lungs: clear to auscultation and percussion Cardiac Exam: - irregular rate & rhythm, no murmurs gallops or rubs - normal S1, normal S2 Pulses: 2(+) throughout Abdomen: abdomen soft, non-tender, no abnormal masses and no hepatosplenomegaly Musculoskeletal: no gait disturbance, no joint inflammation, no deforming arthritis Extremities: no edema and no cyanosis Neuro: grossly normal exam Results & Data ([facility]) Vital Signs (Past 12 Hours) Vital Signs Temp Pulse Pulse Resp BP Pulse Ox 06/29/21 08:30 65 18 116/94 95 06/29/21 08:15 77 18 136/87 95 06/29/21 08:00 70 18 100/80 93 06/29/21 07:08 72 141/105 H 96 06/29/21 04:26 36.5 C 68 18 131/93 97 06/29/21 00:50 81 06/28/21 23:29 37.0 C 83 18 138/81 96 Laboratory Results Laboratory Results - last 24 hr 06/28/21 06/28/21 06/28/21 04:09 09:20 16:45 WBC RBC Hgb Hct MCV MCH MCHC RDW Std Deviation RDW Coeff of Connor Plt Count MPV APTT 40.3 H 34.2 H PTT Ratio 1.5 1.3 Sodium Potassium Chloride Carbon Dioxide Anion Gap BUN Creatinine Est Cr Clr Drug Dosing Est GFR ( Amer) Est GFR (Non-Af Amer) BUN/Creatinine Ratio Glucose Estimat Average Glucose 128 Hemoglobin A1c 6.1 H Calcium Magnesium Total Bilirubin AST ALT Alkaline Phosphatase Total Protein Albumin Globulin Albumin/Globulin Ratio 06/29/21 06/29/21 06/29/21 02:04 02:04 02:04 WBC 6.98 RBC 4.60 L Hgb 14.6 Hct 44.9 MCV 97.6 MCH 31.7 MCHC 32.5 RDW Std Deviation 48.1 H RDW Coeff of Connor 13.5 Plt Count 156 MPV 10.5 H APTT 47.1 H* PTT Ratio 1.8 Sodium 138 Potassium 3.7 Chloride 107 Carbon Dioxide 26 Anion Gap 5 BUN 15 Creatinine 0.75 Est Cr Clr Drug Dosing 156.0 Est GFR ( Amer) 120.5 Est GFR (Non-Af Amer) 104.0 BUN/Creatinine Ratio 20.0 Glucose 96 Estimat Average Glucose Hemoglobin A1c Calcium 8.8 Magnesium 2.0 Total Bilirubin 0.7 AST 24 ALT 44 Alkaline Phosphatase 51 Total Protein 6.2 Albumin 3.6 Globulin 2.6 Albumin/Globulin Ratio 1.4 Medications Administered Current Inpatient Medications Acetaminophen (Acetaminophen 325 Mg Tab) 650 mg PO Q4H PRN PRN Reason: Moderate Pain Stop: 07/27/21 11:44 Apixaban (Apixaban 5 Mg Tablet) 5 mg PO BID [facility] Stop: 07/29/21 08:59 Aspirin (Aspirin 81 Mg Ectab) 81 mg PO DAILY [facility] Stop: 07/28/21 08:59 Last Admin: 06/28/21 08:14 Dose: 81 mg Documented by: Atenolol (Atenolol 50 Mg Tablet) 50 mg PO DAILY [facility] Stop: 07/28/21 08:59 Last Admin: 06/28/21 08:15 Dose: 50 mg Documented by: Atorvastatin Calcium (Atorvastatin 40 Mg Tab) 80 mg PO QAM [facility] Stop: 07/27/21 12:44 Last Admin: 06/28/21 08:16 Dose: 80 mg Documented by: Hydrochlorothiazide (Hydrochlorothiazide 25 Mg Tab) 25 mg PO DAILY [facility] Stop: 07/28/21 08:59 Last Admin: 06/28/21 08:15 Dose: 25 mg Documented by: Sodium Chloride (Nss 1000ml) 1,000 mls @ 80 mls/hr IV .[id number] [facility] Stop: 07/28/21 23:44 Last Admin: 06/29/21 00:00 Dose: 80 mls/hr Documented by: Miscellaneous (Stop Order Iv Heparin) 1 ea N/A 0900 ONE Stop: 06/29/21 09:01 Ondansetron HCl (Ondansetron Inj 2 Mg/Ml 2 Ml Vial) 4 mg IV Q4H PRN PRN Reason: Nausea And Vomiting Stop: 07/27/21 11:44 Vitamin D (Cholecalciferol 1,000 Units 25 Mcg Tab) 1,000 units PO DAILY [facility] Stop: 07/28/21 08:59 Last Admin: 06/28/21 08:16 Dose: 1,000 units Documented by:
[2021-06-29] MEDS: ATORVASTATIN 40 MG TAB PO SCH (09:25)
[2021-06-29] MEDS: ASPIRIN 81 MG ECTAB PO SCH (09:25)
[2021-06-29] MEDS: hydroCHLOROthiazide 25 MG TAB PO SCH (09:25)
[2021-06-29] MEDS: ATENOLOL 50 MG TABLET PO SCH (09:26)
[2021-06-29] MEDS: CHOLECALCIFEROL 1,000 UNITS 25 MCG TAB PO SCH (09:26)
--- NOTE | 2021-06-29 12:07 | Hospitalist Progress Note ---
Date of Service June 29, 2021 Assessment & Plan (1) Exertional angina: (2) New onset a-fib: Plan: New onset afib Rate controlled Normal TSH ECHO: No significant valvular pathology. Left ventricle is normal in size. Left ventricle systolic function is normal. EF 60 to 65%. Right ventricle systolic function is normal. Left atrium is moderately dilated. Mild aortic root dilatation. Continue atenolol --S/P successful cardioversion IV heparin for anticoagulation>> transition to Xarelto upon discharge Appreciate cardiology input Needs follow-up with with cardiology upon discharge (3) HTN (hypertension): Plan: On atenolol, HCTZ Dyslipidemia On statin (4) Tobacco use: Plan: - Smoking cessation encouraged (5) Left leg pain: Plan: - Hx of portal vein thrombosis in 2016 Venous Doppler:No evidence of deep venous thrombus within the bilateral lower extremities. Portal Vein USD:No evidence for portal vein thrombosis. (6) Morbid obesity: Plan: BMI of 40.6 Diet and exercise encouraged DVT Px: Xarelto CODE STATUS: Full code Admission and Anticipated Discharge Date Admission Date: June 27, 2021 Subjective Patient is seen and examined at bedside States feeling well today Had cardioversion earlier today Offers no complaints Discussed with cardiology today Denies any chest pain, shortness breath, dizziness, nausea, abdominal pain Plan to be discharged home today Review of Systems Review of Systems: All systems reviewed & are unremarkable except as noted in Subjective Physical Exam Physical Exam: Physical Exam: Vitals signs as noted above General Appearance:Morbidly Obese, no apparent distress Head: normocephalic, Atraumatic Eyes: normal inspection, EOMI Neck: supple, Trachea midline Respiratory/Chest: Decreased breath sounds, CTA, No accessory muscle use Cardiovascular: S1, S2, No murmur Abdomen/GI:Soft, Non tender, Bowel sounds present Extremities/Musculoskeletal:normal inspection, no edema Neurologic/Psych:AAOX3, grossly no focal neurological deficits Skin: normal color, warm Results & Data Results & Data ([facility]) Vital Signs (Past 12 Hours) Vital Signs Temp Pulse Pulse Resp BP Pulse Ox 06/29/21 11:59 36.6 C 77 19 129/94 95 06/29/21 09:30 68 06/29/21 09:18 36.8 C 66 16 107/78 93 06/29/21 08:30 65 18 116/94 95 06/29/21 08:15 77 18 136/87 95 06/29/21 08:00 70 18 100/80 93 06/29/21 07:08 72 141/105 H 96 06/29/21 04:26 36.5 C 68 18 131/93 97 06/29/21 00:50 81 Laboratory Results Short CBC 06/29/21 Range/Units 02:04 WBC 6.98 (4.8-10.8) K/uL Hgb 14.6 (14.0-18.0) g/dL Hct 44.9 (42-52) % Plt Count 156 (130-400) K/uL BMP 06/29/21 02:04 Sodium 138 Potassium 3.7 Chloride 107 Carbon Dioxide 26 BUN 15 Creatinine 0.75 Glucose 96 Calcium 8.8 Liver Function 06/29/21 Range/Units 02:04 Total Bilirubin 0.7 (0.2-1.0) mg/dl AST 24 (13-39) U/L ALT 44 (7-52) U/L Alkaline Phosphatase 51 (34-104) U/L Albumin 3.6 (3.4-5.0) gm/dl
--- NOTE | 2021-06-29 12:13 | Discharge Summary ---
Date of Service June 29, 2021 Admission HPI Per Admitting Provider This is a 55-year-old male with PMHx of HTN, ascending aortic enlargement who presented to the cardiology office this morning to see Dr. Kay for routine follow-up. Upon arriving there he did have chest pain, diaphoresis and some shortness of breath. His symptoms have been present since around Thanksgi, intermittently appearing, as often as daily. It occurs whenever he wakes up, while he is lying in bed, as well as when he is up doing physical activity. Pt describes a dull left sided chest pain which does not radiate, at it's worst is 4/10, and currently a 1/10 while at bedside. He also describes it as a "dripping from his heart". He denies syncope and near syncope. Admits to intermittent orthopnea without weight gain or noticeable edema. Pt notes he previously had a cyst in his chest cavity which was causing a similar pain, 20- 30 years ago, which he has had repeat imaging for and no other further needs for intervention. In the office he described a 2/10 chest discomfort and was treated with sublingual nitro 1 tablet, and given a full dose aspirin. He was referred to the ER however he denied EMS transfer so came per private vehicle. His EKG was found to be in A. fib with a rate of 99 bpm in the office. This appears to be new onset. Has previously followed with his PCP, Jayjay Tong in the outpatient setting. He did have an echocardiogram in November 2020 with normal results. He was referred this past April after a PCP visit to cardiology, and just got in to see the office earlier today for routine visit. Of note he mentions a left leg pain starting medially near the groin and goes down in the foot. Has occurred 3-4 times since January. He mentions a previous hernia (inguinal per records) which he saw a surgeon for 20 years ago, but did not undergo any intervention. Pt is worried about having a blood clot after discussion about afib and being started on heparin. In the ER the patient was started on heparin drip, and cardiology will be consulted for further assistance with work-up. 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 Surg Hx: Hx of colonoscopy with polyp removal, required laparoscopic partial bowel resection due to complication Admission Exam Per Admitting Provider Physical Exam Physical Exam: General: awake, alert, no apparent distress, + morbidly obese with BMI of 40.6 Head: Normocephalic, atraumatic ENT: PERRL, EOMI, no pharyngeal exudate, mucous membranes moist Chest: Clear to auscultation, on room air, no adventitious breath sounds Cardiac: + irregularly irregular, HR in mid to low 90s. No murmur, no JVD, normal peripheral pulses, good capillary refill, no chest pain with palpation. Abdominal: NABS x 4 quadrants, soft, nondistended, nontender to palpation, no rebound or guarding Extremities: Normal inspection, no peripheral edema or erythema, calfs nontender to palpation Psych: Normal mood and affect Neuro: AAO x 3, strength intact bilaterally and rated 5/5, no motor deficits, speech is clear, no peripheral sensory deficits Principal Diagnosis Atrial fibrillation Discharge Data Allergies Allergy/AdvReac Type Severity Reaction Status Date / Time garlic Allergy Unknown UNKNOWN Unverified 06/27/21 11:45 latex Allergy Unknown rash Verified 06/27/21 11:45 Consultations 06/27/21 10:46 ED Decision to Admit Stat 06/27/21 11:45 Consult Cardiology Routine 06/28/21 14:39 Consult Anesthesiology Routine Procedures Performed Operation Date: 06/29/21 07:30 Actual Procedures p Echo Transesophageal - DO silvia Whiting Cardioversion - DO silvia Whiting Doppler Echo Limited/Follow Up - DO silvia Whiting Echo Color Flow - Gabe Flores DO Ordered Studies 06/27/21 US venous doppler LE BI Stat 06/27/21 14:00 US duplex portal hepatic veins Urgent Hospital Course (1) Exertional angina: (2) New onset a-fib: New onset afib Rate controlled Normal TSH ECHO: No significant valvular pathology. Left ventricle is normal in size. Left ventricle systolic function is normal. EF 60 to 65%. Right ventricle systolic function is normal. Left atrium is moderately dilated. Mild aortic root dilatation. Continue atenolol --S/P successful cardioversion IV heparin for anticoagulation>> transition to Xarelto upon discharge Appreciate cardiology input Needs follow-up with with cardiology upon discharge (3) HTN (hypertension): On atenolol, HCTZ Dyslipidemia On statin (4) Tobacco use: - Smoking cessation encouraged (5) Left leg pain: - Hx of portal vein thrombosis in 2016 Venous Doppler:No evidence of deep venous thrombus within the bilateral lower extremities. Portal Vein USD:No evidence for portal vein thrombosis. (6) Morbid obesity: BMI of 40.6 Diet and exercise encouraged DVT Px: Xarelto CODE STATUS: Full code Total Time Total Time Spent Total Time Spent (In Minutes): 44 minutes Discharge Plan Discharge Items Patient Disposition: Home - Self-Care Reason For Visit: NEW AFIB,EXERTIONAL ANGINA Discharge Diagnosis: Atrial fibrillation Activity: Per Instructions section Exercise/Sports: Wait until after follow-up appointment Non-emergency contact: Primary Care Provider and Flange Turner Call non-emergency contact if: you have any medication questions, your symptoms worsen, your pain is concerning for you and you have a fever Follow-up/Referrals: Gabe Padilla [Primary Care Provider] - 07/03/21 1:40 pm Diet: Heart Healthy Addtl Attending Provider Instructions: --Follow-up with your primary care physician Gabe Padilla on July 03, 2021 at 1:40 PM --Follow-up with your electricity trader Dr. Brooks in 2 to 3 weeks for further consideration of cardiac stress test as outpatient. Seek immediate medical attention if your symptoms reoccur or worsen Please take all medications as instructed on discharge list below. Please call if you have any questions or problems. You can reach a [facility] hospitalist on duty at [facility] 24 hours a day by calling [phone] Pending Studies at Discharge: No Stand-Alone Forms: My [facility], Smoking Cessation Medications and DC Order Prescriptions: New Xarelto 20 mg tablet 20 mg PO PM Qty: 30 RF: 1 Continued hydrochlorothiazide 25 mg tablet 25 mg PO DAILY RF: 0 atenolol 50 mg tablet 50 mg PO DAILY RF: 0 aspirin [Aspirin Low Dose] 81 mg Tablet,Delayed Release (Dr/Ec) 81 mg PO DAILY RF: 0 Vitamin D2 1,000 unit Capsule 1,000 unit PO DAILY RF: 0 Discharge Orders: Discharge Order (Routine); Ordered 06/29/21 Ordered By: Hubert Markham/Other Patient Handouts: Prediabetes, 5 Steps for Eating Healthier Admission Data Admit Date/Time: 06/27/21 10:59 Attending Provider: Hubert Topete Admit Provider: Cathy Rico Primary Care Provider: Gabe Padilla Other Providers: Cathy Rico ; Teddy Brooks ; Sushma Toth
--- NOTE | 2021-06-29 12:24 | Communication Note ---
Date of Service: June 29, [address] Topete by secure provider to provider tigthomas text. The preferred direct oral anticoagulant agent per the patient's prescription d rug formulary is Xarelto. Patient received dose of Eliquis this morning at 9:25 a.m.. Heparin was discontinued At time of Xarelto dose. Will plan on discharging with prescription for Xarelto appropriate dose 20 milligrams. This medication needs to be taken with the evening meal for best absorption. Therefore plan on having patient take it this evening at approximately 6 or 7:00 p.m. with meal to allow for uninterrupted anticoagulation.
--- NOTE | 2021-06-30 06:49 | Electrocardiogram Report ---
Test Reason : Blood Pressure : / mmHG Vent. Rate : 083 BPM Atrial Rate : 083 BPM P-R Int : 176 ms QRS Dur : 090 ms QT Int : 366 ms P-R-T Axes : 036 -34 060 degrees QTc Int : 430 ms Normal sinus rhythm Left axis deviation Inferior infarct , age undetermined Nonspecific T wave abnormality Abnormal ECG When compared with ECG of 27-JUN-2021 09:59, Sinus rhythm has replaced Atrial fibrillation Confirmed by Lai Foster ([id number]) on 06/30/2021 6:48:58 AM Referred By: Jesus Kay Confirmed By:Lai Foster
== END 2021-06-29 13:45 | disposition home or self-care (01) | DRG 309 ==
LOC: ED 09:41 → EDINP 10:59 → SUATTDRO 10:59 → 2S 11:45
DX: Z82.49 Family history of ischemic heart disease and other diseases of the circulatory system; F17.210 Nicotine dependence, cigarettes, uncomplicated; M79.605 Pain in left leg; Z68.41 Body mass index [BMI] 40.0-44.9, adult; I71.2 Thoracic aortic aneurysm, without rupture; Z79.82 Long term (current) use of aspirin; Z91.040 Latex allergy status; I48.91 Unspecified atrial fibrillation; I10 Essential (primary) hypertension; E66.01 Morbid (severe) obesity due to excess calories; E78.5 Hyperlipidemia, unspecified; I20.8 Other forms of angina pectoris; Z86.718 Personal history of other venous thrombosis and embolism; K76.0 Fatty (change of) liver, not elsewhere classified